=== PATIENT | female | born 1970 | race Caucasian/White ===

== ENCOUNTER 2016-10-19 11:50 | Emergency (ER) | payer MEDICARE, MEDICAID ==
[2016-10-19] MEDS ORDERED: METOCLOPRAMIDE HCL 10 MG/2 ML VIAL IM ONE ×2 (12:13→12:20)
[2016-10-19] MEDS ORDERED: DIPHENHYDRAMINE HCL IV 50 MG/ML VIAL IM ONE (12:13)
--- NOTE | 2016-10-19 12:41 | Emergency Department Record ---
History of Present Illness - General Chief Complaint: Headache Migraine Stated Complaint: warner Time Seen by Provider: 10/19/16 12:05 Source: Patient, RN notes reviewed Mode of Arrival: Ambulatory - History of Present Illness Initial Comments: Patient is having her typical migraine and has nausea and she has been seen here for migraines before. MD Complaint: "Migraine" Onset/Timin -: Days(s) Onset Description: Gradual Location: Diffuse, Frontal Severity: Mild Severity scale (1-10): 9 Quality: Aching Consistency: Constant Improves With: Nothing Worsens With: Light, Noise Treatments Prior to Arrival: Migraine medication - Related Data Home Medications Medication Instructions Recorded Confirmed Last Taken Citalopram Hydrobromide [Celexa] 20 mg PO DAILY 09/16/14 10/19/16 1 Day Ago Calcium Citrate 950 mg PO DAILY 12/16/14 10/19/16 1 Day Ago Cholecalciferol (Vitamin D3) 2,000 unit PO DAILY 12/16/14 10/19/16 1 Day Ago [Vitamin D3] Cyanocobalamin (Vitamin B-12) 500 mcg SL DAILY 12/16/14 10/19/16 1 Day Ago [B-12] Magnesium Oxide [Mag Ox] 400 mg PO DAILY 12/16/14 10/19/16 1 Day Ago Tramadol HCl [Ultram] 50 mg PO Q6H 07/25/15 10/19/16 1 Day Ago Oxymorphone HCl [Oxymorphone HCl 10 mg PO BID 10/19/16 10/19/16 2 Days Ago ER] Pantoprazole Sodium [Protonix] 20 mg PO DAILY 10/19/16 10/19/16 1 Day Ago Previous Rx's Medication Instructions Recorded Tramadol HCl 50 mg PO Q8H #10 tab 03/03/16 Allergies Allergy/AdvReac Type Severity Reaction Status Date / Time hydromorphone [HYDROMORPHONE] Allergy Unknown DIFFICULTY Verified 10/19/16 12:01 BREATHING morphine [MORPHINE] Allergy Unknown DIFFICULTY Verified 10/19/16 12:01 BREATHING Penicillins [PENICILLINS] Allergy Unknown RASH Verified 10/19/16 12:01 codeine [CODEINE] AdvReac Unknown NAUSEA AND Verified 10/19/16 12:01 VOMITING NSAIDS (Non-Steroidal AdvReac VOMITING Verified 10/19/16 12:01 Anti-Inflamma Travel Screening - Travel/Exposure Within Last 30 Days Have you traveled within the last 30 days?: No - Travel/Exposure Within Last Year Have you traveled outside the [place] in the last year?: No - Additonal Travel Details Have you been exposed to anyone with a communicable illness?: No - Travel Symptoms Symptom Screening: None Review of Systems Reviewed: No additional complaints except as noted below Constitutional: Reports: As per HPI. Denies: Chills, Fever, Malaise, Night sweats, Weakness, Weight change Eyes: Reports: As per HPI. Denies: Eye discharge, Eye pain, Photophobia, Vision change ENT: Reports: As per HPI. Denies: Congestion, Dental pain, Ear pain, Epistaxis , Hearing loss, Throat pain Respiratory: Reports: As per HPI. Denies: Cough, Dyspnea, Hemoptysis, Stridor, Wheezes Cardiovascular: Reports: As per HPI. Denies: Arrhythmia, Chest pain, Dyspnea on exertion, Edema, Murmurs, Orthopnea, Palpitations, Paroxysmal nocturnal dyspnea, Rheumatic Fever, Syncope Endocrine: Reports: As per HPI. Denies: Fatigue, Heat or cold intolerance, Polydipsia, Polyuria Gastrointestinal: Reports: As per HPI. Denies: Abdominal pain, Constipation, Diarrhea, Hematemesis, Hematochezia, Melena, Nausea, Vomiting Genitourinary: Reports: As per HPI. Denies: Abnormal menses, Discharge, Dyspareunia, Dysuria, Frequency, Hematuria, Incontinence, Retention, Urgency Musculoskeletal: Reports: As per HPI. Denies: Arthralgia, Back pain, Gout, Joint swelling, Myalgia, Neck pain Skin: Reports: As per HPI. Denies: Bruising, Change in color, Change in hair/ nails, Lesions, Pruritus, Rash Neurological: Reports: As per HPI, Headache. Denies: Abnormal gait, Confusion, Numbness, Paresthesias, Seizure, Tingling, Tremors, Vertigo, Weakness Psychiatric: Reports: As per HPI. Denies: Anxiety, Auditory hallucinations, Depression, Homicidal thoughts, Suicidal thoughts, Visual hallucinations Hematological/Lymphatic: Reports: As per HPI. Denies: Anemia, Blood Clots, Easy bleeding, Easy bruising, Swollen glands Past Medical History - SOCIAL HISTORY Smoking Status: Former smoker Alcohol Use: None Drug Use: None - RESPIRATORY Hx Respiratory Disorders: Yes Hx Asthma: Yes (controlled with inhalers) - CARDIOVASCULAR Hx Cardio Disorders: No Hx Hypertension: No (denies) Comment:: troubles with knee - NEURO Hx Neuro Disorders: Yes Hx Headaches: Yes Hx of Migraines: Yes (2-3x per week) Comment:: oxycontin for relief - GI Hx GI Disorders: Yes Hx Reflux: Yes (controlled with meds) Hx Wt Loss/Wt Gain: Yes (appeitite decreased) Comment:: gastric bypass 2009 with 125# wt loss - Hx Genitourinary Disorders: Yes Hx Kidney Stones: Yes - ENDOCRINE Hx Endocrine Disorders: No Hx Diabetes: Yes (gestational diabetes) - MUSCULOSKELETAL Hx Musculoskeletal Disorders: Yes Hx Arthritis: Yes Hx Osteoporosis: Yes - PSYCH Hx Psych Problems: Yes Hx Depression: Yes - HEMATOLOGY/ONCOLOGY Hx Hematology/Oncology Disorders: No Family Medical History Any Significant Family History?: Yes Hx Diabetes: Father, Mother Hx Heart Disease: Father, Mother Hx HTN: Father Hx Kidney Disease: Father, Mother Hx Resp Disorders: Father, Mother Physical Exam - General General Appearance: Alert, Oriented x3, Cooperative, No acute distress - Head Head exam: Normal inspection - Eye Eye exam: Normal appearance, PERRL Pupils: Normal accommodation - ENT ENT exam: Normal exam, Mucous membranes moist, Normal external ear exam, Normal orophraynx, TM's normal bilaterally Ear exam: Normal external inspection. negative: External canal tenderness Nasal Exam: Normal inspection. negative: Discharge, Sinus tenderness Mouth exam: Normal external inspection, Tongue normal Teeth exam: Normal inspection. negative: Dental caries Throat exam: Normal inspection. negative: Tonsillar erythema, Tonsillar exudate - Neck Neck exam: Normal inspection, Full ROM. negative: Tenderness - Respiratory Respiratory exam: Normal lung sounds bilaterally. negative: Respiratory distress - Cardiovascular Cardiovascular Exam: Regular rate, Normal rhythm, Normal heart sounds - GI/Abdominal GI/Abdominal exam: Soft, Normal bowel sounds. negative: Tenderness - Rectal Rectal exam: Deferred - exam: Deferred - Extremities Extremities exam: Normal inspection, Full ROM, Normal capillary refill. negative: Tenderness - Back Back exam: Reports: Normal inspection, Full ROM. Denies: Muscle spasm, Rash noted, Tenderness - Neurological Neurological exam: Alert, Normal gait, Oriented X3, Reflexes normal - Psychiatric Psychiatric exam: Normal affect, Normal mood - Skin Skin exam: Dry, Intact, Normal color, Warm Course Vital Signs 10/19/16 11:54 Temperature 97.9 F Pulse Rate 84 Respiratory 16 Rate Blood Pressure 143/92 Pulse Ox 97 - Reevaluation(s) Reevaluation #1: feeling better. 10/19/16 12:40 Disposition Clinical Impression: Migraine Qualifiers: Migraine type: with aura Status migrainosus presence: without status migrainosus Intractability: not intractable Qualified Code(s): G43.109 - Migraine with aura, not intractable, without status migrainosus Disposition: Home, Self-Care Condition: (1) Good Instructions: Migraine Headache (ED) Additional Instructions: follow up with alix Medrano in 3 days Forms: Patient Portal Access Time of Disposition: 12:42
== END 2016-10-19 12:53 | disposition home or self-care (01) ==
LOC: ER 11:50
DX: G43.109 Migraine with aura, not intractable, without status migrainosus (principal)
CPT/HCPCS: 96372; 99283; J1200; J2765

== ENCOUNTER 2016-12-28 14:48 | Emergency (ER) | payer MEDICAID, MEDICARE ==
[2016-12-28] MEDS ORDERED: PROMETHAZINE HCL 25 MG/ML VIAL IM ONE (16:34)
[2016-12-28] MEDS ORDERED: METHYLPREDNISOLONE PF 125MG/VIAL IM ONE (16:34)
[2016-12-28] MEDS ORDERED: ORPHENADRINE CITRATE 60MG/2ML VIAL IM ONE (16:34)
[2016-12-28] MEDS ORDERED: NALBUPHINE HCL 20 MG/ML AMPULE IM ONE (17:40)
--- NOTE | 2016-12-28 18:27 | Emergency Department Record ---
History of Present Illness - General Chief Complaint: Headache Migraine Stated Complaint: JUNIOR Time Seen by Provider: 12/28/16 16:25 Source: Patient Mode of Arrival: Ambulatory Limitations: No limitations - History of Present Illness MD Complaint: "Migraine" Onset/Timin -: Hour(s) Onset Description: Gradual Location: Diffuse Severity: Severe Severity scale (1-10): 10 Quality: Throbbing, Similar to previous headaches Consistency: Constant Improves With: Nothing Worsens With: Light, Noise Context: Occured at rest Associated Symptoms: Nausea, Photophobia, Sensitivity to sound Treatments Prior to Arrival: Migraine medication - Related Data Home Medications Medication Instructions Recorded Confirmed Last Taken Citalopram Hydrobromide [Celexa] 20 mg PO DAILY 09/16/14 12/28/16 12/28/16 Calcium Citrate 950 mg PO DAILY 12/16/14 12/28/16 12/28/16 Cholecalciferol (Vitamin D3) 2,000 unit PO DAILY 12/16/14 12/28/16 12/28/16 [Vitamin D3] Cyanocobalamin (Vitamin B-12) 500 mcg SL DAILY 12/16/14 12/28/16 12/28/16 [B-12] Magnesium Oxide [Mag Ox] 400 mg PO DAILY 12/16/14 12/28/16 12/28/16 Tramadol HCl [Ultram] 50 mg PO Q6H 07/25/15 12/28/16 12/28/16 Oxymorphone HCl [Oxymorphone HCl 10 mg PO BID 10/19/16 10/19/16 12/28/16 ER] Pantoprazole Sodium [Protonix] 20 mg PO DAILY 10/19/16 12/28/16 12/28/16 Allergies Allergy/AdvReac Type Severity Reaction Status Date / Time hydromorphone [HYDROMORPHONE] Allergy Unknown DIFFICULTY Verified 12/28/16 16:22 BREATHING morphine [MORPHINE] Allergy Unknown DIFFICULTY Verified 12/28/16 16:22 BREATHING Penicillins [PENICILLINS] Allergy Unknown RASH Verified 12/28/16 16:22 codeine [CODEINE] AdvReac Unknown NAUSEA AND Verified 12/28/16 16:22 VOMITING NSAIDS (Non-Steroidal AdvReac VOMITING Verified 12/28/16 16:22 Anti-Inflamma Travel Screening - Travel/Exposure Within Last 30 Days Have you traveled within the last 30 days?: No - Travel/Exposure Within Last Year Have you traveled outside the [place] in the last year?: No - Additonal Travel Details Have you been exposed to anyone with a communicable illness?: No - Travel Symptoms Symptom Screening: None Review of Systems Reviewed: No additional complaints except as noted below Constitutional: Reports: As per HPI. Denies: Chills, Fever, Malaise, Night sweats, Weakness, Weight change Eyes: Reports: As per HPI. Denies: Eye discharge, Eye pain, Photophobia, Vision change ENT: Reports: As per HPI. Denies: Congestion, Dental pain, Ear pain, Epistaxis , Hearing loss, Throat pain Respiratory: Reports: As per HPI. Denies: Cough, Dyspnea, Hemoptysis, Stridor, Wheezes Cardiovascular: Reports: As per HPI. Denies: Arrhythmia, Chest pain, Dyspnea on exertion, Edema, Murmurs, Orthopnea, Palpitations, Paroxysmal nocturnal dyspnea, Rheumatic Fever, Syncope Endocrine: Reports: As per HPI. Denies: Fatigue, Heat or cold intolerance, Polydipsia, Polyuria Gastrointestinal: Reports: As per HPI. Denies: Abdominal pain, Constipation, Diarrhea, Hematemesis, Hematochezia, Melena, Nausea, Vomiting Genitourinary: Reports: As per HPI. Denies: Abnormal menses, Discharge, Dyspareunia, Dysuria, Frequency, Hematuria, Incontinence, Retention, Urgency Musculoskeletal: Reports: As per HPI. Denies: Arthralgia, Back pain, Gout, Joint swelling, Myalgia, Neck pain Skin: Reports: As per HPI. Denies: Bruising, Change in color, Change in hair/ nails, Lesions, Pruritus, Rash Neurological: Reports: As per HPI. Denies: Abnormal gait, Confusion, Headache, Numbness, Paresthesias, Seizure, Tingling, Tremors, Vertigo, Weakness Psychiatric: Reports: As per HPI. Denies: Anxiety, Auditory hallucinations, Depression, Homicidal thoughts, Suicidal thoughts, Visual hallucinations Hematological/Lymphatic: Reports: As per HPI. Denies: Anemia, Blood Clots, Easy bleeding, Easy bruising, Swollen glands Past Medical History - SOCIAL HISTORY Smoking Status: Former smoker Alcohol Use: None Drug Use: None - RESPIRATORY Hx Respiratory Disorders: Yes Hx Asthma: Yes (controlled with inhalers) - CARDIOVASCULAR Hx Cardio Disorders: No Hx Hypertension: No (denies) Comment:: troubles with knee - NEURO Hx Neuro Disorders: Yes Hx Headaches: Yes Hx of Migraines: Yes (2-3x per week) Comment:: oxycontin for relief - GI Hx GI Disorders: Yes Hx Reflux: Yes (controlled with meds) Hx Wt Loss/Wt Gain: Yes (appeitite decreased) Comment:: gastric bypass 2009 with 125# wt loss - Hx Genitourinary Disorders: Yes Hx Kidney Stones: Yes - ENDOCRINE Hx Endocrine Disorders: No Hx Diabetes: Yes (gestational diabetes) - MUSCULOSKELETAL Hx Musculoskeletal Disorders: Yes Hx Arthritis: Yes Hx Osteoporosis: Yes - PSYCH Hx Psych Problems: Yes Hx Depression: Yes - HEMATOLOGY/ONCOLOGY Hx Hematology/Oncology Disorders: No Family Medical History Any Significant Family History?: Yes Hx Diabetes: Father, Mother Hx Heart Disease: Father, Mother Hx HTN: Father Hx Kidney Disease: Father, Mother Hx Resp Disorders: Father, Mother Physical Exam - General General Appearance: Alert, Oriented x3, Cooperative, Mild distress - Head Head exam: Normal inspection - Eye Eye exam: Normal appearance, PERRL, EOMI Pupils: Normal accommodation - ENT ENT exam: Normal exam, Mucous membranes moist, Normal external ear exam, Normal orophraynx, TM's normal bilaterally Ear exam: Normal external inspection. negative: External canal tenderness Nasal Exam: Normal inspection. negative: Discharge, Sinus tenderness Mouth exam: Normal external inspection, Tongue normal Teeth exam: Normal inspection. negative: Dental caries Throat exam: Normal inspection. negative: Tonsillar erythema, Tonsillar exudate - Neck Neck exam: Normal inspection, Full ROM. negative: Tenderness - Respiratory Respiratory exam: Normal lung sounds bilaterally. negative: Respiratory distress - Cardiovascular Cardiovascular Exam: Regular rate, Normal rhythm, Normal heart sounds - GI/Abdominal GI/Abdominal exam: Soft, Normal bowel sounds. negative: Tenderness - Rectal Rectal exam: Deferred - exam: Deferred - Extremities Extremities exam: Normal inspection, Full ROM, Normal capillary refill. negative: Tenderness - Back Back exam: Reports: Normal inspection, Full ROM. Denies: Muscle spasm, Rash noted, Tenderness - Neurological Neurological exam: Alert, CN II-XII intact, Normal gait, Oriented X3 - Psychiatric Psychiatric exam: Normal affect, Normal mood - Skin Skin exam: Dry, Intact, Normal color, Warm Course Vital Signs 12/28/16 16:10 Temperature 98.6 F Pulse Rate 86 Respiratory 16 Rate Blood Pressure 134/79 Pulse Ox 97 Disposition Disposition: Discharge Clinical Impression: Migraine Qualifiers: Migraine type: unspecified Status migrainosus presence: without status migrainosus Intractability: not intractable Qualified Code(s): G43.909 - Migraine, unspecified, not intractable, without status migrainosus Disposition: Home, Self-Care Condition: (1) Good Instructions: Migraine Headache (ED) Additional Instructions: follow up with neurologist. return sooner if worse Forms: Patient Portal Access
== END 2016-12-28 18:58 | disposition home or self-care (01) ==
LOC: ER 14:48
DX: G43.909 Migraine, unspecified, not intractable, without status migrainosus (principal); R11.0 Nausea; H53.149 Visual discomfort, unspecified
CPT/HCPCS: 99283 ×2; 96372; J2300; J2360; J2550; J2930

== ENCOUNTER 2017-01-15 13:06 | Emergency (ER) | payer MEDICARE | END 2017-01-15 13:12 | disposition left against medical advice (07) | LOC: ER 13:06 | DX: Z53.20 Procedure and treatment not carried out because of patient's decision for unspecified reasons (principal) ==

== ENCOUNTER 2017-07-31 07:47 | Day surgery (SDC) | payer MEDICARE, MEDICAID ==
--- NOTE | 2017-07-31 06:54 | History and Physical - [facility] ---
CHIEF COMPLAINT/HISTORY OF CHIEF COMPLAINT: This patient with a history of an intractable radiculitis has a spinal cord stimulator in place since 11/28/15. Although this appeared to be working quite well for the patient over the last number of months the system has stopped covering her pain and she has stopped using the system. Due to the failure of the therapy she is here by her request for removal of the system. PAST MEDICAL HISTORY: Asthmatic bronchitis. PAST SURGICAL HISTORY: Knee surgery, tonsils, ankle surgery, and gallbladder surgery. MEDICATIONS ON ADMISSION: List to be provided. ALLERGIES: VICODIN. FAMILY/PSYCHOSOCIAL HISTORY: Social history - Positive for caffeine. Family history - Positive for asthma, diabetes, coronary artery disease, and hypertension. SYSTEMS REVIEW: The patient seems appropriate in no acute distress. The remainder of the systems review is positive for glasses, breathing difficulties , degenerative arthritis, peripheral edema, depression, and difficulty sleeping. PHYSICAL EXAMINATION: Height and weight are not known. Vital signs are not available. HEENT: Within normal limits. LUNGS: Clear. HEART: Regular rate and rhythm. ABDOMEN: Nontender. MUSCULOSKELETAL: Examination of the musculoskeletal system shows the incisional sites of the leads approximating T12. Generator site is noted at the left posterior gluteal margin. All of the incisions are intact. Chronic pain pattern low back with a bilateral lower extremity extension. No obvious motor and sensory field abnormalities. NEUROLOGIC: Cranial nerves are intact. IMPRESSION: 1. LUMBAR RADICULITIS, ICD-10 CODE M54.16. 2. SPINAL CORD STIMULATOR INTERNAL GENERATOR, NONFUNCTIONAL. PLAN: The patient is here for removal of the stimulator, two leads and one generator. The procedure will be considered outpatient, an overnight stay should not be necessary. The potential risks, side effects, and complications have been reviewed and discussed. The patient understands and has consented. JOB NUMBER: [id number] MTDD
[~2017-07-31 07:47] MED LIST: ACETAMINOPHEN 1,000 MG/100 ML BTL IV ONE; CLINDAMYCIN 600MG/50ML PREMIX 600 MG/50 ML BAG IVPB ONE; FAMOTIDINE 20MG TABLET PO ONE; MECLIZINE 25 MG TABLET PO ONE; METOCLOPRAMIDE 10 MG TABLET PO ONE
[2017-07-31] MEDS ORDERED: LIDOCAINE 2% MDV (20MG/ML) 20ML VIAL IV ONE (07:48)
[2017-07-31] MEDS ORDERED: LIDOCAINE 1% W/EPI 1:200,000 MPF 30ML SQ ONE (07:48)
[2017-07-31] MEDS ORDERED: BUPIVACAINE 0.75% W/EPI MPF 30ML VIAL IVP ONE (07:48)
[2017-07-31] MEDS ORDERED: MORPHINE SULFATE 5 MG/ML PFS IVP ONE ×2 (07:48)
[2017-07-31] MEDS ORDERED: FAMOTIDINE 20MG TABLET PO ONE (07:48)
[2017-07-31] MEDS ORDERED: MIDAZOLAM HCL 2MG/2ML VIAL IV ONE (07:48)
[2017-07-31] MEDS ORDERED: FENTANYL PF 100MCG/2ML VIAL IV ONE (07:48)
[2017-07-31] MEDS ORDERED: CLINDAMYCIN (PEDIATRIC DOSING) 150 MG/ML VIAL IVPB ONE (07:48)
[2017-07-31] MEDS ORDERED: HYDROCODONE/APAP 7.5/325MG TABLET PO ONE (07:48)
[2017-07-31] MEDS ORDERED: PROPOFOL 10 MG/ML VIAL IV ONE (07:48)
--- NOTE | 2017-08-01 06:08 | Operative Note - [facility] ---
DATE OF SURGERY: 07/31/17 PREOPERATIVE DIAGNOSES: 1. INTRACTABLE LUMBAR RADICULITIS, ICD-10 CODE = M54.16 AND M54.17. 2. SPINAL CORD STIMULATOR, INTERNAL GENERATOR, TWO LEADS. OPERATION: 1. INCISION, SUBCUTANEOUS DISSECTION, AND REMOVAL OF TWO INDWELLING SPINAL CORD STIMULATORS. 2. INCISION, SUBCUTANEOUS DISSECTION, AND REMOVAL OF INTERNAL PULSE GENERATOR. SURGEON: ISABEL JACOBS D.O. ANESTHESIA: LOCAL SEDATION. ANESTHESIA PROVIDER: ROBB BAKER CRNA. INDICATION: This patient presents with a history of intractable lumbar radiculitis managed by spinal cord stimulator with two leads and internal generator. Over the last six to seven months, the system began to malfunction and lost the ability to control pain. Attempts at reprogramming were unsuccessful. She was given the option to remove or replace, she opted to remove. PROCEDURE: Intravenous line, vital sign monitoring, IV sedation, prepped and draped sterile technique. Under imaging, the incisional site at the midline approximating 12-1 for the two spinal cord stimulators, infiltrated with local, incision made, and subcutaneous dissection was conducted to the anchors. The anchors and sutures were removed intact. The leads were removed intact. All electrodes accounted for. At the left posterior gluteal margin generator site, skin infiltrated, incision made, and subcutaneous dissection was conducted to the pouch. The pouch was opened, the generator removed, and its connections to the leads removed intact. Antibiotic irrigation and Bovie for hemostasis. The incisions were then closed Vicryl for fascia and running subcuticular Vicryl for skin. A Dermabond used approximate the wounds. She was transported to the Recovery Room stable showing no side-effects from the procedure or the sedation. She was monitored until stable then discharged. DISCHARGE INSTRUCTIONS: 1. Sites will remain clean and dry. No showering or bathing in any way that would disrupt dressings; if it happens, contact the clinic. 2. Standard medications resumed including Levaquin, the antibiotic, 500 mg once a day for 14 days. 3. The office will contact the patient at home to set up an evaluation in 7-10 days to evaluate the sites. Until that period of time, activities should stay low. Limit bend, lift, push, pull. All other instructions provided, numbers to contact, problems given. The antibiotic has been called. cc: Dr. Werner JOB NUMBER: [id number] [facility]
== END 2017-07-31 10:45 | disposition home or self-care (01) ==
LOC: SUR 07:47
PROVIDERS: ATTEND Pain Medicine Interventional Pain Medicine
DX: T85.193A Other mechanical complication of implanted electronic neurostimulator, generator, initial encounter (principal); T85.192A Other mechanical complication of implanted electronic neurostimulator of spinal cord electrode (lead), initial encounter; M54.16 Radiculopathy, lumbar region; M54.17 Radiculopathy, lumbosacral region; Z98.84 Bariatric surgery status; E66.9 Obesity, unspecified; Z68.41 Body mass index [BMI] 40.0-44.9, adult; J45.909 Unspecified asthma, uncomplicated
CPT/HCPCS: 63661; 63688; 00300; J3010; J2270; J3490

== ENCOUNTER 2017-08-26 07:38 | Day surgery (SDC) | payer MEDICARE ==
--- NOTE | 2017-08-26 05:34 | History and Physical Report ---
DATE: 08/25/2017. CHIEF COMPLAINT AND HISTORY OF CHIEF COMPLAINT: This is a patient with a history of intractable pain which is in the low back and legs. She is here for an implanted spinal catheter infusion trial because of allergies to hydromorphone with morphine. A recent removal of spinal cord stimulation has left this patient without any appreciable method of pain control. PAST MEDICAL HISTORY: Asthmatic bronchitis, intractable radiculitis. PAST SURGICAL HISTORY: Knee surgery, ankle surgery, gallbladder surgery. MEDICATIONS ON ADMISSION: To be provided. ALLERGIES: Vicodin. SOCIAL HISTORY: Caffeine. FAMILY HISTORY: Asthma, diabetes, coronary artery disease, hypertension. REVIEW OF SYSTEMS: The patient seems appropriate and in no acute distress. The remainder of the systems review shows glasses, difficulty breathing, degenerative arthritis, peripheral edema, depression, and difficulty sleeping. PHYSICAL EXAMINATION: General: Height and weight are not available. Vital Signs: Unavailable. HEENT: Within normal limits. Lungs: Clear. Heart: Regular rate and rhythm. Abdomen: Nontender. Musculoskeletal: Examination of the musculoskeletal system shows a diffuse pain pattern throughout the low back extending into both legs. Motor and sensory field functionality is somewhat difficult to fully assess. There is a pain pattern which appears to be following both an L4 and an L5 pattern into both legs. Ambulation: No assistive device utilized. Neurologic: Cranial nerves are intact. IMPRESSION: LUMBAR RADICULITIS, ICD-10 CODE M54.16 AND M54.17. PLAN: The patient is here for an implanted spinal catheter infusion trial with morphine because of allergies to determine if the implantation of a permanent system can be of any value in pain control. An epidural blood patch will be performed as a secondary measure to help prevent spinal headache. The potential risks, side effects, and complications have been reviewed and discussed including spinal cord injury, nerve root injury, and spinal headache. A discussion with the [employer] construction sales representative was also reviewed, and all of the potential risks, side effects, and complications, as well as a review of the provided information through the company is documented. The complete details of the procedure have been provided. We will consider the procedure outpatient, although an overnight stay will be evaluated. JOB NUMBER: [id number] cc: Zofia Burdick
[~2017-08-26 07:38] MED LIST changes: +HYDROMORPHONE HCL IV ONE; +HYDROMORPHONE HCL/PF 0.002 MG in 0.9 % SODIUM CHLORIDE 10ML VIA 0.998 ML IV ONE; +MORPHINE SULFATE/PF 0.05 MG in 0.9 % SODIUM CHLORIDE 10ML VIA 0.95 ML IV ONE; +MORPHINE SULFATE/PF 0.05 MG in 0.9 % SODIUM CHLORIDE 10ML VIA 0.95 ML IV SCH; +MORPHINE SULFATE/PF 10.4 MG in 0.9 % SODIUM CHLORIDE 500ML 489.6 ML IV ONE; +MORPHINE SULFATE/PF 10.4 MG in 0.9 % SODIUM CHLORIDE 500ML 489.6 ML IV SCH; +SODIUM CHLORIDE 0.9% IV ONE
[2017-08-26] MEDS ORDERED: MORPHINE SULFATE 5 MG/ML PFS IVP ONE ×2 (07:39)
[2017-08-26] MEDS ORDERED: LIDOCAINE 2% MDV (20MG/ML) 20ML VIAL IV ONE (07:39)
[2017-08-26] MEDS ORDERED: ONDANSETRON HCL IV 4 MG/2 ML VIAL IVP ONE (07:39)
[2017-08-26] MEDS ORDERED: LIDOCAINE 1% W/EPI 1:200,000 MPF 30ML SQ ONE (07:39)
[2017-08-26] MEDS ORDERED: BUPIVACAINE 0.75% W/EPI MPF 30ML VIAL IVP ONE (07:39)
[2017-08-26] MEDS ORDERED: ACETAMINOPHEN 1,000 MG/100 ML BTL IV ONE (07:39)
[2017-08-26] MEDS ORDERED: MIDAZOLAM HCL 2MG/2ML VIAL IV ONE (07:39)
[2017-08-26] MEDS ORDERED: PROPOFOL 10 MG/ML VIAL IV ONE (07:39)
[2017-08-26] MEDS ORDERED: FENTANYL PF 100MCG/2ML VIAL IV ONE (07:39)
[2017-08-26] MEDS ORDERED: CLINDAMYCIN (PEDIATRIC DOSING) 150 MG/ML VIAL IVPB ONE (07:39)
[2017-08-26] MEDS ORDERED: AL HYDROX/MAG HYDROX 30ML UD PO PRN (12:35)
[2017-08-26] MEDS ORDERED: ACETAMINOPHEN 325 MG TAB PO PRN ×2 (12:35)
[2017-08-26] MEDS ORDERED: NALOXONE 0.4 MG/1 ML VIAL IVP PRN (12:35)
[2017-08-26] MEDS ORDERED: HYDROMORPHONE HCL 1 MG/ML SYRINGE IM PRN (12:35)
[2017-08-26] MEDS ORDERED: METOCLOPRAMIDE 10 MG TABLET PO PRN (12:35)
[2017-08-26] MEDS ORDERED: TEMAZEPAM 15 MG CAPSULE PO PRN ×2 (12:35)
[2017-08-26] MEDS ORDERED: METOCLOPRAMIDE HCL 10 MG/2 ML VIAL IVP PRN (12:35)
[2017-08-26] MEDS ORDERED: HYDROMORPHONE HCL 2 MG/ML VIAL IM PRN (12:35)
[2017-08-26] MEDS ORDERED: DIPHENHYDRAMINE HCL IV 50 MG/ML VIAL IVP PRN ×2 (12:35)
[2017-08-26] MEDS ORDERED: OXYCODONE/APAP 10MG-325MG TABLET PO PRN ×2 (12:35)
[2017-08-26] MEDS ORDERED: SENNOSIDES/DOCUSATE SODIUM UD CAPSULE PO PRN ×2 (12:35)
[2017-08-26] MEDS ORDERED: DIPHENHYDRAMINE HCL 25 MG CAPSULE PO PRN ×2 (12:35)
[2017-08-26] MEDS ORDERED: BREO (FLUTICASONE/VILANTEROL) 100MCG/25MCG INHALER INH PRN (12:39)
[2017-08-26] MEDS ORDERED: ALBUTEROL HFA 8 GM INHALER INH PRN (12:39)
[2017-08-26] MEDS: HYDROCODONE/APAP 7.5/325MG TABLET PO PRN ×3 (15:09→21:09)
[2017-08-26] MEDS: CITALOPRAM 20 MG TABLET PO SCH (15:11)
[2017-08-26] MEDS: CLINDAMYCIN 600MG/50ML PREMIX 600 MG/50 ML BAG IVPB SCH (18:05)
--- NOTE | 2017-08-26 19:51 | Operative Note - Ferro ---
DATE OF SURGERY: 08/26/17 PREOPERATIVE DIAGNOSIS: INTRACTABLE LUMBAR RADICULITIS, ICD-10 CODE = M54.16 AND M54.17. OPERATION: 1. FLUOROSCOPICALLY-GUIDED ACCESS SPINAL SPACE AT L3-4, PLACEMENT OF THIN- WALLED SPINAL CATHETER T12. 2. DIAGNOSTIC MYELOGRAPHY WITH RADIOLOGIC SUPERVISION AND INTERPRETATION. 3. SPINAL OPIOID BOLUS MORPHINE, 0.05 MG. 4. INCISION, SUBCUTANEOUS DISSECTION, AND ANCHORING OF SPINAL CATHETER TO SUPRASPINOUS FASCIA WITH AN ANCHORING DEVICE AND NONABSORBABLE SUTURE. 5. INCISION, SUBCUTANEOUS DISSECTION, AND CREATION OF A SUBCUTANEOUS POUCH AT LEFT POSTERIOR GLUTEAL MARGIN. 6. TUNNELING BETWEEN POUCHES, PLACEMENT OF EXTERNAL PORTION OF SPINAL CATHETER INTO POSTERIOR LEFT POUCH. CATHETER REVISED INTERFACED WITH SECOND CATHETER COMPONENT BY WAY OF CONNECTOR. 7. TUNNELING SECOND CATHETER COMPONENT SUPERIOR 6 CM EXITING SKIN. INTERFACE EXTERNAL CATHETER WITH INFUSION DEVICE SET TO DELIVER MORPHINE AT 0.2 MG PER DAY. 8. CLOSURE OF MIDLINE INCISION, VICRYL FOR FASCIA, AND RUNNING SUBCUTICULAR VICRYL FOR SKIN. CLOSURE OF LEFT POSTERIOR POUCH INCISION WITH A RUNNING NYLON. 9. NO EPIDURAL BLOOD PATCH COULD BE PERFORMED BECAUSE NO APPRECIABLE BLOOD FROM IV COULD BE OBTAINED. PATIENT TRANSPORTED TO THE RECOVERY ROOM FLAT, PILLOW UNDER HEAD AND KNEES. SURGEON: ISABEL JACOBS D.O. ANESTHESIA: LOCAL SEDATION. ANESTHESIA PROVIDER: FABY WHELAN CRNA. INDICATION: This patient presents with a history of intractable lumbar radiculitis. Due to the failure of all therapies, she is here for an implanted spinal catheter infusion trial with Morphine because of Hydromorphone sensitivities to determine if the implantation of a permanent system could be of any value in pain control. PROCEDURE: Intravenous line, vital sign monitoring, IV sedation, prepped and draped in sterile technique. Patient position prone. Sterile prep. Sterile technique. The spinal interspace at L3-4 was marked, infiltrated, and a 20 gauge spinal needle paramedian approach, beveled with a long axis into the spinal space. CSF flow was noted through the needle. A thin-walled spinal catheter was advanced positioned T12. CSF still noted through the spinal catheter. The catheter was clamped to stop CSF leak. Skin above and below the needle was infiltrated, incision made, and subcutaneous dissection was conducted to the supraspinous fascia. The needle was removed and the catheter was anchored to the supraspinous fascia with an anchoring device and nonabsorbable suture. With the catheter anchored, it was laid flat on the field and CSF was still noted coming from the catheter tip. Diagnostic myelography performed, the resulting flow characteristics were appropriate for the spinal space confirming myelogram characteristics. A bolus of Morphine 0.05 mg given into the spinal space. At the left posterior gluteal margin, site picked by the patient for the eventual pump, skin infiltrated, incision made, and subcutaneous dissection was conducted to form a pouch of suitable depth. A tunneling tool was used to carry the spinal catheter into the pump pouch and then the catheter was interfaced with a second catheter component by way of a catheter connection. This new catheter was then tunneled 6 cm above the incision at the pouch and exteriorized to the skin. The external catheter was then interfaced to an external pump, which was set to deliver Morphine at 0.2 mg per day. The midline incision was closed with Vicryl for fascia and running subcuticular Vicryl for skin. The left posterior pouch was closed with a running nylon. No blood patch could be performed because the patient was a difficult IV and no appreciable volume of blood could be aspirated through the peripheral IV. At that point, dressing was placed securing the catheter and all connections sterile dressing. She was transported to the Recovery Room flat, pillow under head and knees, and will be kept flat for four hours, slowly elevated for one. I am recommending to the patient and family that we keep the patient overnight for observation. We can manage fluid volume and keep her appropriately positioned. DISCHARGE INSTRUCTIONS: 1. The sites will remain clean and dry. No showering or bathing in any way that disrupts dressing. If it happens, contact the clinic. 2. Standard medications resumed, including Levaquin, the antibiotic, 500 mg once a day for 14 days. 3. Spinal opioid side-effects including respiratory depression, nausea, vomiting , constipation, urinary retention, lightheadedness, or rash have all been discussed and reviewed. She will be monitoring for spinal headache. With the occurrence of a headache, stay flat, caffeinated beverages and plenty of fluid, contact clinic. She will be scheduled for three increases; the first will be within the first 48 hours. The office will contact the patient at home to confirm the first increase. All other instructions provided, numbers to contact , problems given. She will be evaluated. cc: Dr. Rubin JOB NUMBER: [id number] MTDD
[2017-08-26] MEDS: PANTOPRAZOLE SODIUM 40 MG TABLET PO SCH (21:09)
[2017-08-26] MEDS: RINGERS SOLUTION,LACTATED 1,000 ML IV SCH ×2 (21:11→22:53)
[2017-08-27] MEDS: HYDROCODONE/APAP 7.5/325MG TABLET PO PRN ×4 (01:01→13:01)
[2017-08-27] MEDS: CLINDAMYCIN 600MG/50ML PREMIX 600 MG/50 ML BAG IVPB SCH ×2 (01:08→08:59)
[2017-08-27] MEDS: RINGERS SOLUTION,LACTATED 1,000 ML IV SCH (06:23)
[2017-08-27] MEDS: PANTOPRAZOLE SODIUM 40 MG TABLET PO SCH (06:26)
[2017-08-27] MEDS: CITALOPRAM 20 MG TABLET PO SCH (08:59)
--- NOTE | 2017-08-27 12:50 | RADIOLOGY REPORT ---
EXAM: LUMBAR SPINE HISTORY: STIMULATOR PLACEMENT. TECHNIQUE: A single AP view of the lumbar spine was performed. FINDINGS: Stimulator lead tip is at the L4 level. IMPRESSION: STIMULATOR LEAD TIP IS AT THE L4 LEVEL. JOB NUMBER: [id number] MTDD
== END 2017-08-27 13:07 | disposition home or self-care (01) ==
LOC: SUR 07:38 → MEDSURG 12:07 → SUR 08-27 13:07
PROVIDERS: ATTEND Pain Medicine Interventional Pain Medicine
DX: M54.16 Radiculopathy, lumbar region (principal); M54.17 Radiculopathy, lumbosacral region; J45.909 Unspecified asthma, uncomplicated; E66.9 Obesity, unspecified; Z68.41 Body mass index [BMI] 40.0-44.9, adult; J44.9 Chronic obstructive pulmonary disease, unspecified; Z98.84 Bariatric surgery status
CPT/HCPCS: 72020; J1170; J2405; J2765; J3490; J7040

== ENCOUNTER 2017-09-09 08:37 | Day surgery (SDC) | payer MEDICARE ==
--- NOTE | 2017-09-09 05:54 | History and Physical Report ---
DATE: 09/08/2017. CHIEF COMPLAINT AND HISTORY OF CHIEF COMPLAINT: This patient presents with a history of an intractable lumbar radiculitis. On 08/26/2017 an implanted spinal catheter infusion trial with hydromorphone was initiated. Her current spinal opioid infusion dose is 0.16 mg per day. She has 75 to 80 percent pain control and wants to move forward with a permanent implant. PAST MEDICAL HISTORY: Asthmatic bronchitis, radiculitis. PAST SURGICAL HISTORY: Knee surgery, ankle surgery, gallbladder surgery. MEDICATIONS ON ADMISSION: To be provided. ALLERGIES: Vicodin. SOCIAL HISTORY: Caffeine. FAMILY HISTORY: Asthma, diabetes, coronary artery disease, hypertension. REVIEW OF SYSTEMS: The patient is appropriate and in no acute distress. The remainder of the systems review shows glasses, difficulty with breathing, degenerative arthritis, peripheral edema, depression, difficulty sleeping. PHYSICAL EXAMINATION: General: Height and weight not known. Vital Signs: Blood pressure 140/80. Musculoskeletal: Current examination shows the dressings for the implanted catheter trial to be intact. The primary pain pattern is in the low back with a bilateral lower extremity component. Motor and sensory field function is essentially intact. There are no obvious deficits. Ambulation: No assistive device utilized. Neurologic: Cranial nerves are intact. IMPRESSION: 1. LUMBAR RADICULITIS, ICD-10 CODE M54.16 AND M54.17. 2. IMPLANTED SPINAL CATHETER INFUSION TRIAL WITH HYDROMORPHONE. PLAN: This patient had greater than 75 percent pain control with the implanted catheter trial and wants to move forward with a permanent implant. The external catheter will be removed and the pump will be implanted at the posterior gluteal margin as previously discussed. The potential risks, side effects, and complications have all been reviewed and discussed. The procedure will be considered outpatient, although an overnight stay will be evaluated. JOB NUMBER: [id number] cc: Zofia Burdick
[~2017-09-09 08:37] MED LIST changes: -HYDROMORPHONE HCL IV ONE; -HYDROMORPHONE HCL/PF 0.002 MG in 0.9 % SODIUM CHLORIDE 10ML VIA 0.998 ML IV ONE; +MORPHINE SULFATE 0.4 GM in 0.9 % SODIUM CHLORIDE 100ML 40 ML IV ONE; -MORPHINE SULFATE/PF 0.05 MG in 0.9 % SODIUM CHLORIDE 10ML VIA 0.95 ML IV SCH; -MORPHINE SULFATE/PF 10.4 MG in 0.9 % SODIUM CHLORIDE 500ML 489.6 ML IV ONE; -MORPHINE SULFATE/PF 10.4 MG in 0.9 % SODIUM CHLORIDE 500ML 489.6 ML IV SCH; -SODIUM CHLORIDE 0.9% IV ONE
[2017-09-09] MEDS ORDERED: CLINDAMYCIN (PEDIATRIC DOSING) 150 MG/ML VIAL IVPB ONE (08:38)
[2017-09-09] MEDS ORDERED: MORPHINE SULFATE 5 MG/ML PFS IVP ONE (08:38)
[2017-09-09] MEDS ORDERED: LIDOCAINE 2% MDV (20MG/ML) 20ML VIAL IV ONE (08:38)
[2017-09-09] MEDS ORDERED: PROPOFOL 10 MG/ML VIAL IV ONE (08:38)
[2017-09-09] MEDS ORDERED: MIDAZOLAM HCL 2MG/2ML VIAL IV ONE (08:38)
[2017-09-09] MEDS ORDERED: FENTANYL PF 100MCG/2ML VIAL IV ONE (08:38)
[2017-09-09] MEDS ORDERED: CITRIC ACID/SODIUM CITRATE 30 ML SOLUTION (BICITRA) PO ONE (08:38)
[2017-09-09] MEDS ORDERED: LIDOCAINE 1% W/EPI 1:200,000 MPF 30ML SQ ONE (08:38)
[2017-09-09] MEDS ORDERED: BUPIVACAINE 0.75% W/EPI MPF 30ML VIAL IVP ONE (08:38)
[2017-09-09] MEDS ORDERED: HYDROMORPHONE HCL 1 MG/ML SYRINGE IM PRN (14:26)
[2017-09-09] MEDS ORDERED: METOCLOPRAMIDE HCL 10 MG/2 ML VIAL IVP PRN (14:26)
[2017-09-09] MEDS ORDERED: DIPHENHYDRAMINE HCL IV 50 MG/ML VIAL IVP PRN ×2 (14:26)
[2017-09-09] MEDS ORDERED: ACETAMINOPHEN 325 MG TAB PO PRN ×2 (14:26)
[2017-09-09] MEDS ORDERED: DIPHENHYDRAMINE HCL 25 MG CAPSULE PO PRN ×2 (14:26)
[2017-09-09] MEDS ORDERED: OXYCODONE/APAP 10MG-325MG TABLET PO PRN ×2 (14:26)
[2017-09-09] MEDS ORDERED: SENNOSIDES/DOCUSATE SODIUM UD CAPSULE PO PRN ×2 (14:26)
[2017-09-09] MEDS ORDERED: HYDROMORPHONE HCL 2 MG/ML VIAL IM PRN (14:26)
[2017-09-09] MEDS ORDERED: METOCLOPRAMIDE 10 MG TABLET PO PRN (14:26)
[2017-09-09] MEDS ORDERED: TEMAZEPAM 15 MG CAPSULE PO PRN ×2 (14:26)
[2017-09-09] MEDS ORDERED: AL HYDROX/MAG HYDROX 30ML UD PO PRN (14:26)
[2017-09-09] MEDS ORDERED: ALBUTEROL HFA 8 GM INHALER INH PRN (14:29)
[2017-09-09] MEDS ORDERED: BREO (FLUTICASONE/VILANTEROL) 100MCG/25MCG INHALER INH PRN (14:30)
[2017-09-09] MEDS: RINGERS SOLUTION,LACTATED 1,000 ML IV SCH ×2 (14:39→23:29)
[2017-09-09] MEDS: HYDROCODONE/APAP 7.5/325MG TABLET PO PRN ×2 (16:38→22:11)
[2017-09-09] MEDS: CITALOPRAM 20 MG TABLET PO SCH (16:38)
[2017-09-09] MEDS: CLINDAMYCIN 600MG/50ML PREMIX 600 MG/50 ML BAG IVPB SCH (20:36)
[2017-09-09] MEDS: PANTOPRAZOLE SODIUM 40 MG TABLET PO SCH (22:06)
[2017-09-09] MEDS: MAGNESIUM OXIDE 400 MG TABLET PO SCH (22:06)
[2017-09-10] MEDS: CLINDAMYCIN 600MG/50ML PREMIX 600 MG/50 ML BAG IVPB SCH ×2 (04:36→11:49)
[2017-09-10] MEDS: PANTOPRAZOLE SODIUM 40 MG TABLET PO SCH (06:12)
[2017-09-10] MEDS: HYDROCODONE/APAP 7.5/325MG TABLET PO PRN ×2 (06:12→11:46)
--- NOTE | 2017-09-10 07:04 | Operative Note - Ferro ---
DATE OF SURGERY: 09/09/2017. PREOPERATIVE DIAGNOSIS: 1. LUMBAR RADICULITIS, ICD-10 CODE M54.16 AND M54.17. 2. INTRACTABLE LUMBAR RADICULITIS, ICD-10 CODE M54.16 AND M54.17. 3. IMPLANTED SPINAL CATHETER INFUSION TRIAL WITH HYDROMORPHONE. POSTOPERATIVE DIAGNOSIS: 1. LUMBAR RADICULITIS, ICD-10 CODE M54.16 AND M54.17. 2. INTRACTABLE LUMBAR RADICULITIS, ICD-10 CODE M54.16 AND M54.17. 3. IMPLANTED SPINAL CATHETER INFUSION TRIAL WITH HYDROMORPHONE. OPERATION: 1. INCISION, SUBCUTANEOUS DISSECTION, AND REMOVAL OF EXTERNAL CATHETER. 2. INCISION, SUBCUTANEOUS DISSECTION, AND CREATION OF SUBCUTANEOUS POUCH AT LEFT POSTEROSUPERIOR GLUTEAL MARGIN. REPLACEMENT OF PUMP IDENTIFIED A MEDTRONIC 40 ML PROGRAMMABLE. 3. REVISION OF THE INDWELLING SPINAL CATHETER INTERFACED WITH SECOND CATHETER COMPONENT BY WAY OF CONNECTOR. INTERFACE REVISED CATHETER TO NEW PUMP. 4. PUMP PREFILLED WITH MORPHINE 1.0 MG PER ML INTERFACED TO RESECTED CATHETER. PLACEMENT OF PUMP WITH CATHETER INTO POUCH SECURING TO POSTERIOR FASCIA WITH NONABSORBABLE SUTURE. 5. PLACEMENT OF CURVED 24-GAUGE FLOYD NEEDLE INTO ACCESS PORT. PROGRAMMABLE PUMP ASPIRATION WITH CLEARING OF SPINAL CATHETER OF OPIOID AND CEREBROSPINAL FLUID MIXTURE. 6. DIAGNOSTIC MYELOGRAPHY WITH RADIOLOGIC SUPERVISION AND INTERPRETATION. 7. PLACEMENT OF PUMP INTO POUCH AND CLOSURE OF INCISION WITH VICRYL FOR THE FASCIA AND RUNNING SUBCUTICULAR VICRYL FOR THE SKIN. 8. PROGRAMMING OF PUMP TO DELIVER BY CONTINUOUS INFUSION MORPHINE AT 1.0 MG PER DAY. SURGEON: Candelario Phillips D.O. ANESTHESIA: Local sedation. ANESTHESIA PROVIDER: Jan Rosa CRNA. INDICATION: This patient presents with a history of an intractable lumbar radiculitis. Due to the failure of therapy, an implanted spinal catheter infusion trial with morphine was conducted over 14 days. During this period of time, the patient had 75 to 85 percent pain control with no side effects and improved functionality and mobility. Due to the failure of all other therapies and the success of the implanted catheter trial, the patient presents today for implantation of a permanent system. DESCRIPTION OF PROCEDURE: Intravenous line, vital sign monitoring, and intravenous sedation. The patient was positioned prone. Sterile prep and sterile technique. All of the external dressings were removed. At the left posterior gluteal margin at the pump pouch site, the skin was infiltrated. An incision was made and subcutaneous dissection was conducted to the interface between the indwelling spinal catheter and the external catheter. The internal catheter was clamped. The external catheter was cut and was then removed intact. A second catheter component was then interfaced to the indwelling spinal catheter by way of a connector. The revised spinal catheter would be interfaced to the pump. A pouch was formed subcutaneously at the left posterior gluteal margin to accommodate a 40 mL programmable Medtronic pump. The new pump was placed onto the field filled with morphine at 1.0 mg per mL; 40 mL total. The revised catheter was then interfaced to the new pump. Antibiotic irrigation and Bovie for hemostasis. The pump was then placed into the pouch which had been formed and secured to the fascia with nonabsorbable suture at three points using pump eyelets. With the pump in the pouch, a 24- gauge Floyd needle was inserted into the access port, and 1.0 mL of catheter contents was aspirated, clearing the catheter of opioid and cerebrospinal mixture. Diagnostic myelography was then performed through the access port. The resulting flow characteristics showed the catheter intact within the pump. The pump catheter connection was intact with the catheter tip in the spinal space at L2 with smooth linear flow of contrast noted confirming functionality of the system. The incision was then closed with Vicryl for the fascia and running subcuticular Vicryl for the skin. Dermabond closure. The pump was programmed to deliver by continuous infusion morphine at 1.0 mg a day. She was transported to the recovery room with Dermabond in place to approximate the edges of the wound. By request, she will stay overnight for observation and will be discharged in the morning. DISCHARGE INSTRUCTIONS: 1. The sites are to remain clean and dry. No showering or bathing in any way tonight. She may shower tomorrow. 2. Standard medications are to be resumed including Levaquin the antibiotic 500 mg once a day for 14 days. 3. Opioid side effects including respiratory depression, nausea, vomiting, constipation, urinary retention, lightheadedness, and rash have all been discussed and reviewed. All of the other potential side effects have been reviewed. 4. She will be discharged in the morning. She will then be contacted by the office in 24 to 48 hours to set up an appointment in five to seven days to evaluate the sites. Until then, her activities should stay low. No bend, lift , push, or pull. 5. She should not sit in water, but she may shower in 24 hours. 6. All other instructions were provided. Numbers to contact with problems were given. She will be discharged in the morning. JOB NUMBER: [id number] cc: Zofia Burdick
[2017-09-10] MEDS: RINGERS SOLUTION,LACTATED 1,000 ML IV SCH (08:36)
--- NOTE | 2017-09-10 08:56 | RADIOLOGY REPORT ---
EXAM: AP LUMBAR SPINE HISTORY: POST PAIN PUMP IMPLANT. TECHNIQUE: A single AP view of the lumbar spine was obtained. Comparison: Prior AP spine view dated 08/26/17. FINDINGS: There is a battery pack partially seen along the left lower quadrant lateral aspect of the abdomen. Some faint wire extends from this to overlie the lumbar spine at the approximate L4 level. There is a very faint tiny dot like metallic density overlying the L2 vertebra which could be the superior extent of the associated catheter although correlation with the procedure itself is suggested as this is very faintly seen. A simile dot like density was seen at the level of the upper body of L1 on the prior study. Surgical clips right upper quadrant of the abdomen presumably from cholecystectomy. IMPRESSION: FAINT WIRE/CATHETER STRUCTURE OVERLYING THE LUMBAR SPINE QUESTIONABLY TERMINATING AT THE APPROXIMATE L2 LEVEL DESCRIBED ABOVE. JOB NUMBER: [id number] MTDD
[2017-09-10] MEDS: CITALOPRAM 20 MG TABLET PO SCH (10:01)
[2017-09-10] MEDS: MAGNESIUM OXIDE 400 MG TABLET PO SCH (10:02)
== END 2017-09-10 13:00 | disposition home or self-care (01) ==
LOC: SUR 08:37 → MEDSURG 14:35 → SUR 09-10 13:00
PROVIDERS: ATTEND Pain Medicine Interventional Pain Medicine
DX: M54.16 Radiculopathy, lumbar region (principal); M54.17 Radiculopathy, lumbosacral region
CPT/HCPCS: 62350; 62362; 00630; 62367; 72020; Q9967; J3010; J2270; J1170; J3490; C1755; J2765; J7120

== ENCOUNTER 2017-09-16 14:16 | Emergency (ER) | payer MEDICARE ==
[2017-09-16 15:03] LABS: URINE APPEARANCE CLEAR; URINE BILIRUBIN NEGATIVE (NEGATIVE); URINE BLOOD NEGATIVE (NEGATIVE); URINE COLOR YELLOW; URINE GLUCOSE (UA) NEGATIVE (NEGATIVE); URINE KETONE NEGATIVE (NEGATIVE); URINE LEUKOCYTE ESTERASE NEGATIVE (NEGATIVE); URINE NITRITE NEGATIVE (NEGATIVE); URINE PROTEIN NEGATIVE (NEGATIVE); URINE UROBILINOGEN 0.2 E.U./dL (0.20 - 1.00)
[2017-09-16] MEDS: ONDANSETRON HCL IV 4 MG/2 ML VIAL IVP ONE (15:12)
[2017-09-16 15:28] LABS: BASO % 0.5 % (0-6); EOS % 12.4 % (0-6); GRAN % 48.9 % (47-80); HEMATOCRIT 37.6 % (35.0-47.0); HEMOGLOBIN 11.4 gm/dl (11.6-16.0); LYMPH % 30.5 % (16-45); MEAN CELL VOLUME 101.9 fl (81-97); MEAN CORPUSCULAR HGB CONC 30.3 g/dl (32-36); MEAN PLATELET VOLUME 9.6 fl (7.4-10.4); MONO % 7.7 % (0-9); PLATELET COUNT 357 K/uL (130-400); RED BLOOD COUNT 3.69 M/uL (3.80-5.40); RED CELL DISTRIBUTION WIDTH 12.6 % (11.5-14.5); WHITE BLOOD COUNT W/O DIFF 5.6 K/uL (4.2-12.2)
[2017-09-16 15:29] LABS: MEAN CORPUSCULAR HEMOGLOBIN 30.8 pg (27-33)
[2017-09-16 15:38] LABS: BLOOD UREA NITROGEN 5 mg/dL (6-20); CREATININE 0.5 mg/dL (0.5-0.9); EST GLOMERULAR FILTRATION RATE > 60 mL/min; TOTAL PROTEIN 7.9 g/dL (6.6-8.7)
[2017-09-16 15:40] LABS: GLUCOSE,RANDOM 98 mg/dL (74-109)
[2017-09-16 15:43] LABS: ALKALINE PHOSPHATASE 103 U/L (35-104); ALT/SGPT 16 U/L (<33); AST/SGOT 22 U/L (10.0-35.0)
--- NOTE | 2017-09-16 15:48 | Emergency Department Record ---
History of Present Illness - General Chief Complaint: General Stated Complaint: SWOLLEN FEET/LEGS,HEADACHE,DIZINESS,NAUSEA Time Seen by Provider: 09/16/17 14:55 Source: Patient Mode of Arrival: Ambulatory Limitations: No limitations - History of Present Illness Initial comments: pt c/o swelling of feet and nausea pt had a morphine pump put in last week and since then she has has nausea and her feet have been swelling -: Days(s) Location: Left, Right, Other (feet) Quality: Aching Consistency: Constant Improves with: Rest Worsens with: Movement Associated Symptoms: Nausea/vomiting - [place] Coma Scale Eye Response: (4) Open spontaneously Motor Response: (6) Obeys commands Verbal Response: (5) Oriented [place] Total: 15 - Related Data Home Medications Medication Instructions Recorded Confirmed Last Taken Cephalexin [Keflex] 500 mg PO QID 09/16/17 09/16/17 09/16/17 Previous Rx's Medication Instructions Recorded Promethazine HCl [Phenergan] 12.5 mg PO BID #7 tablet 09/16/17 Allergies Allergy/AdvReac Type Severity Reaction Status Date / Time hydromorphone [HYDROMORPHONE] Allergy Unknown DIFFICULTY Verified 09/16/17 14:35 BREATHING Penicillins [PENICILLINS] Allergy Unknown RASH Verified 09/16/17 14:35 codeine [CODEINE] AdvReac Unknown NAUSEA AND Verified 09/16/17 14:35 VOMITING NSAIDS (Non-Steroidal AdvReac VOMITING Verified 09/16/17 14:35 Anti-Inflamma Travel Screening - Travel/Exposure Within Last 30 Days Have you traveled within the last 30 days?: No - Travel/Exposure Within Last Year Have you traveled outside the [place] in the last year?: No - Additonal Travel Details Have you been exposed to anyone with a communicable illness?: No - Travel Symptoms Symptom Screening: None Review of Systems Reviewed: No additional complaints except as noted below Constitutional: Reports: As per HPI. Denies: Chills, Fever, Malaise, Night sweats, Weakness, Weight change Eyes: Reports: As per HPI. Denies: Eye discharge, Eye pain, Photophobia, Vision change ENT: Reports: As per HPI. Denies: Congestion, Dental pain, Ear pain, Epistaxis , Hearing loss, Throat pain Respiratory: Reports: As per HPI. Denies: Cough, Dyspnea, Hemoptysis, Stridor, Wheezes Cardiovascular: Reports: As per HPI. Denies: Arrhythmia, Chest pain, Dyspnea on exertion, Edema, Murmurs, Orthopnea, Palpitations, Paroxysmal nocturnal dyspnea, Rheumatic Fever, Syncope Endocrine: Reports: As per HPI. Denies: Fatigue, Heat or cold intolerance, Polydipsia, Polyuria Gastrointestinal: Reports: As per HPI. Denies: Abdominal pain, Constipation, Diarrhea, Hematemesis, Hematochezia, Melena, Nausea, Vomiting Genitourinary: Reports: As per HPI. Denies: Abnormal menses, Discharge, Dyspareunia, Dysuria, Frequency, Hematuria, Incontinence, Retention, Urgency Musculoskeletal: Reports: As per HPI. Denies: Arthralgia, Back pain, Gout, Joint swelling, Myalgia, Neck pain Skin: Reports: As per HPI. Denies: Bruising, Change in color, Change in hair/ nails, Lesions, Pruritus, Rash Neurological: Reports: As per HPI. Denies: Abnormal gait, Confusion, Headache, Numbness, Paresthesias, Seizure, Tingling, Tremors, Vertigo, Weakness Psychiatric: Reports: As per HPI. Denies: Anxiety, Auditory hallucinations, Depression, Homicidal thoughts, Suicidal thoughts, Visual hallucinations Hematological/Lymphatic: Reports: As per HPI. Denies: Anemia, Blood Clots, Easy bleeding, Easy bruising, Swollen glands Past Medical History - SOCIAL HISTORY Smoking Status: Former smoker Alcohol Use: None Drug Use: None - RESPIRATORY Hx Respiratory Disorders: Yes Hx Asthma: Yes (controlled with inhalers) - CARDIOVASCULAR Hx Cardio Disorders: No Comment:: troubles with knee - NEURO Hx Neuro Disorders: Yes Hx Dizziness: Yes (once a month vertigo down for 3-5 days) Hx Headaches: Yes Hx of Migraines: Yes (2-3x per week) - GI Hx GI Disorders: Yes Hx Reflux: Yes (controlled with meds) Hx Wt Loss/Wt Gain: (denies) - Hx Genitourinary Disorders: Yes Hx Bladder Problem: Yes (small bladder frequent urination) Hx Kidney Stones: Yes Comment:: s/p hyst - ENDOCRINE Hx Endocrine Disorders: No Hx Diabetes: Yes (gestational diabetes) - MUSCULOSKELETAL Hx Musculoskeletal Disorders: Yes Hx Arthritis: Yes - PSYCH Hx Psych Problems: Yes Hx Depression: Yes - HEMATOLOGY/ONCOLOGY Hx Hematology/Oncology Disorders: No Family Medical History Any Significant Family History?: Yes Hx Diabetes: Father, Mother Hx Heart Disease: Father, Mother Hx HTN: Father Hx Kidney Disease: Father, Mother Hx Resp Disorders: Father, Mother Physical Exam - General General Appearance: Alert, Oriented x3, Cooperative, Mild distress - Head Head exam: Normal inspection - Eye Eye exam: Normal appearance, PERRL, EOMI Pupils: Normal accommodation - ENT ENT exam: Normal exam, Mucous membranes moist, Normal external ear exam, Normal orophraynx Ear exam: Normal external inspection. negative: External canal tenderness Nasal Exam: Normal inspection. negative: Discharge, Sinus tenderness Mouth exam: Normal external inspection, Tongue normal Teeth exam: Normal inspection. negative: Dental caries Throat exam: Normal inspection. negative: Tonsillar erythema, Tonsillar exudate - Neck Neck exam: Normal inspection, Full ROM. negative: Tenderness - Respiratory Respiratory exam: Normal lung sounds bilaterally. negative: Respiratory distress - Cardiovascular Cardiovascular Exam: Regular rate, Normal rhythm, Normal heart sounds - GI/Abdominal GI/Abdominal exam: Soft, Normal bowel sounds. negative: Tenderness - Rectal Rectal exam: Deferred - exam: Deferred - Extremities Extremities exam: Normal inspection, Full ROM, Normal capillary refill, Pedal edema (slight). negative: Tenderness - Back Back exam: Reports: Normal inspection, Full ROM, Other (healing incision on l hip). Denies: Muscle spasm, Rash noted, Tenderness - Neurological Neurological exam: Alert, CN II-XII intact, Normal gait, Oriented X3 - Psychiatric Psychiatric exam: Normal affect, Normal mood - Skin Skin exam: Dry, Intact, Normal color, Warm Course Vital Signs 09/16/17 14:44 Temperature 97.9 F Pulse Rate 93 H Blood Pressure 178/107 - Reevaluation(s) Reevaluation #1: 09/16/17 16:42 pts nausea could possibly be caused by the new morphine pump she has. she was told to follow up with dr can hurtado this Medical Decision Making - Lab Data Result diagrams: 09/16/17 15:20 09/16/17 15:20 Lab Results 09/16/17 09/16/17 Range/Units 15:20 15:20 WBC 5.6 (4.2-12.2) K/uL RBC 3.69 L (3.80-5.40) M/uL Hgb 11.4 L (11.6-16.0) gm/dl Hct 37.6 (35.0-47.0) % MCV 101.9 H (81-97) fl MCH 30.8 (27-33) pg MCHC 30.3 L (32-36) g/dl RDW 12.6 (11.5-14.5) % Plt Count 357 (130-400) K/uL MPV 9.6 (7.4-10.4) fl Gran % 48.9 (47-80) % Lymphocytes % 30.5 (16-45) % Monocytes % 7.7 (0-9) % Eosinophils % 12.4 H (0-6) % Basophils % 0.5 (0-6) % Sodium 138 (136-145) mmol/L Potassium 3.9 (3.4-4.5) mmol/L Chloride 98 (98-107) mmol/L Carbon Dioxide 29.0 (22-29) mmol/L Anion Gap 11.0 (7-16) BUN 5 L (6-20) mg/dL Creatinine 0.5 (0.5-0.9) mg/dL Estimated GFR > 60 mL/min Random Glucose 98 (74-109) mg/dL Calcium 9.2 (8.6-10.0) mg/dL Total Bilirubin 0.20 (0.2-1.0) mg/dL Total Protein 7.9 (6.6-8.7) g/dL Disposition Disposition: Discharge Clinical Impression: Nausea, Pedal edema Disposition: Home, Self-Care Condition: (1) Good Instructions: Leg Edema (ED), Acute Nausea and Vomiting (ED) Additional Instructions: follow up with dr north and with family doctor. return sooner if worse. elevate feet. Prescriptions: Promethazine HCl [Phenergan] 12.5 mg PO BID #7 tablet Forms: Patient Portal Access Quality - Quality Measures Quality Measures: N/A - Blood Pressure Screening Does Patient Have Any of the Following: No Blood Pressure Classification: Hypertensive Reading Systolic Measurement: 178 Diastolic Measurement: 107 Screening for High Blood Pressure: < First Hypertensive BP, F/U Documented > [ [id number]] First Hypertensive Follow-up Interventions: Follow-up with rescreen GT 1 day and LT 4 weeks.
[2017-09-16] MEDS: PROMETHAZINE HCL 6.25 MG in 0.9 % SODIUM CHLORIDE 100ML 100 ML IVPB ONE (16:50)
== END 2017-09-16 17:27 | disposition home or self-care (01) ==
LOC: ER 14:16
DX: R11.0 Nausea (principal); R60.0 Localized edema; R42 Dizziness and giddiness; R51 Headache
CPT/HCPCS: 99284 ×2; 96365; 96375; 85025; 80053; 81003; 83880; J2405; J2550

== ENCOUNTER 2017-09-21 07:49 | Emergency (ER) | payer MEDICARE ==
--- NOTE | 2017-09-21 07:57 | Emergency Department Record ---
History of Present Illness - General Chief Complaint: Back Pain/Injury Stated Complaint: BACK PAIN Time Seen by Provider: 09/21/17 07:56 Source: Patient Mode of Arrival: Ambulatory Limitations: No limitations - History of Present Illness Initial Comments: The patient is here due to a chronic back and neck pain issue. The patient has a long hx of chronic back and neck pain and did have a spinal Hydromorphone pump placed 12 days ago. Since the surgery she has had persistent nausea and now states her pain is back to her pre surgery level. She denies any CP, SOB, AP , vomiting, diarrhea, fever, or any arm or leg numbness or weakness. The patient does have an appointment with her Pain Specialist today at 3:30 pm. She also was in the ER 5 days ago for the same issues and was placed on Phenergan for nausea. MD Complaint: Back pain Onset/Timin -: Year(s) - Related Data Previous Rx's Medication Instructions Recorded Promethazine HCl [Phenergan] 12.5 mg PO BID #7 tablet 09/16/17 Allergies Allergy/AdvReac Type Severity Reaction Status Date / Time hydromorphone [HYDROMORPHONE] Allergy Unknown DIFFICULTY Verified 09/21/17 07:58 BREATHING Penicillins [PENICILLINS] Allergy Unknown RASH Verified 09/21/17 07:58 codeine [CODEINE] AdvReac Unknown NAUSEA AND Verified 09/21/17 07:58 VOMITING NSAIDS (Non-Steroidal AdvReac VOMITING Verified 09/21/17 07:58 Anti-Inflamma Review of Systems Constitutional: Reports: Malaise. Denies: Chills, Fever Eyes: Denies: Eye discharge ENT: Denies: Congestion Respiratory: Denies: Cough, Dyspnea Cardiovascular: Denies: Chest pain Past Medical History - SOCIAL HISTORY Smoking Status: Former smoker Drug Use: None - RESPIRATORY Hx Respiratory Disorders: Yes Hx Asthma: Yes (controlled with inhalers) - CARDIOVASCULAR Hx Cardio Disorders: No Comment:: troubles with knee - NEURO Hx Neuro Disorders: Yes Hx Dizziness: Yes (once a month vertigo down for 3-5 days) Hx Headaches: Yes Hx of Migraines: Yes (2-3x per week) - GI Hx GI Disorders: Yes Hx Reflux: Yes (controlled with meds) Hx Wt Loss/Wt Gain: (denies) - Hx Genitourinary Disorders: Yes Hx Bladder Problem: Yes (small bladder frequent urination) Hx Kidney Stones: Yes Comment:: s/p hyst - ENDOCRINE Hx Endocrine Disorders: No Hx Diabetes: Yes (gestational diabetes) - MUSCULOSKELETAL Hx Musculoskeletal Disorders: Yes Hx Arthritis: Yes - PSYCH Hx Psych Problems: Yes Hx Depression: Yes - HEMATOLOGY/ONCOLOGY Hx Hematology/Oncology Disorders: No Family Medical History Hx Diabetes: Father, Mother Hx Heart Disease: Father, Mother Hx HTN: Father Hx Kidney Disease: Father, Mother Hx Resp Disorders: Father, Mother Physical Exam - General General Appearance: Alert, Oriented x3, Cooperative, No acute distress - Head Head exam: Atraumatic, Normocephalic, Normal inspection - Eye Eye exam: Normal appearance, PERRL - Neck Neck exam: Normal inspection, Full ROM, Tenderness (There is mild diffuse tenderness to the posterior cervical muscle area.) - Respiratory Respiratory exam: Normal lung sounds bilaterally. negative: Respiratory distress - Cardiovascular Cardiovascular Exam: Regular rate, Normal rhythm, Normal heart sounds - GI/Abdominal GI/Abdominal exam: Soft, Normal bowel sounds. negative: Tenderness - Extremities Extremities exam: Normal inspection, Full ROM, Normal capillary refill. negative: Tenderness - Neurological Neurological exam: Alert, Normal gait, Oriented X3, Reflexes normal. negative: Abnormal gait, Motor sensory deficit - Psychiatric Psychiatric exam: negative: Anxious - Skin Skin exam: negative: Erythema, Rash Course - Reevaluation(s) Reevaluation #1: The patient is doing much better at this time. Her pain is much improved and she is ready for home. I did find out the pain pump presently is NOT on and this is clearly why her pain is worse. She also had her Tramadol stopped. She is encouraged to keep her appointment today with Dr. Phillips to have the pump turned on. 09/21/17 09:06 Disposition Disposition: Discharge Clinical Impression: Chronic pain disorder Disposition: Home, Self-Care Condition: (2) Stable Instructions: Chronic Pain (ED) Additional Instructions: Please continue your regular medicines and definitely keep your appointment today to turn the pain pump on. Return to the ER for any worsening problems. Forms: Patient Portal Access Time of Disposition: 09:05 Quality - Quality Measures Quality Measures: N/A - Blood Pressure Screening View Details: Yes Does Patient Have Any of the Following: No, Active Dx of HTN Blood Pressure Classification: Hypertensive Reading Systolic Measurement: 166 Diastolic Measurement: 115 Screening for High Blood Pressure: Patient Exclusion, Hx of HTN [J7803]
[2017-09-21] MEDS ORDERED: ONDANSETRON 4 MG ODT TABLET SL ONE (08:05)
[2017-09-21] MEDS ORDERED: KETOROLAC 30 MG/ML VIAL IM ONE (08:06)
[2017-09-21] MEDS ORDERED: TRAMADOL HCL 50 MG TABLET PO ONE (08:42)
== END 2017-09-21 09:13 | disposition home or self-care (01) ==
LOC: ER 07:49
DX: G89.29 Other chronic pain (principal); M54.2 Cervicalgia; R11.0 Nausea
CPT/HCPCS: 99283 ×2; 96372; J1885

== ENCOUNTER 2018-04-22 17:07 | Emergency (ER) | payer MEDICARE ==
[2018-04-22] MEDS ORDERED: TRAMADOL HCL 50 MG TABLET PO ONE (17:25)
--- NOTE | 2018-04-22 17:32 | Emergency Department Record ---
History of Present Illness - General Chief Complaint: Fall Injury Stated Complaint: FALL INJURY Time Seen by Provider: 04/22/18 17:10 Source: Patient Mode of Arrival: Ambulatory Limitations: No limitations - History of Present Illness Initial Comments: 47 yo female presents to ED for evaluation following a fall that occurred yesterday while attempting to change her litter box. Patient reports that she bent over and fell to the ground resulting in injury "al over". Patient specifically reports headache and right shoulder pain. Patient denies syncope, denies numbness, tingling, or extremity weakness symptoms. Patient denies the use of anticoagulation medications as well. Patient reports pain with elevation of the right shoulder. Patient also reports taking Tramadol for her pain symptoms at home that has helped. MD Complaint: Fall Onset/Timin -: Hour(s) Fall From: Standing When Fall Occurred: Other Fall Witnessed: Yes, by family Place Fall Occurred: Home Loss of Consciousness: Yes Prolonged Down Time?: Yes Symptoms Prior to Fall: Other Location: Head, Back Location - Extremities: Right: Shoulder Severity: Moderate Quality: Aching Associated Symptoms: Other - [place] Coma Scale Eye Response: (4) Open spontaneously Motor Response: (6) Obeys commands Verbal Response: (5) Oriented [place] Total: 15 - Related Data Previous Rx's Medication Instructions Recorded Promethazine HCl [Phenergan] 12.5 mg PO BID #7 tablet 09/16/17 Allergies Allergy/AdvReac Type Severity Reaction Status Date / Time hydromorphone [HYDROMORPHONE] Allergy Unknown DIFFICULTY Verified 09/21/17 07:58 BREATHING Penicillins [PENICILLINS] Allergy Unknown RASH Verified 09/21/17 07:58 codeine [CODEINE] AdvReac Unknown NAUSEA AND Verified 09/21/17 07:58 VOMITING NSAIDS (Non-Steroidal AdvReac VOMITING Verified 09/21/17 07:58 Anti-Inflamma Travel Screening - Travel/Exposure Within Last 30 Days Have you traveled within the last 30 days?: No - Travel/Exposure Within Last Year Have you traveled outside the [place] in the last year?: No - Additonal Travel Details Have you been exposed to anyone with a communicable illness?: No - Travel Symptoms Symptom Screening: None Review of Systems Constitutional: Denies: Chills, Fever, Malaise, Night sweats Eyes: Denies: Eye discharge, Eye pain ENT: Denies: Congestion, Ear pain, Epistaxis Respiratory: Denies: Cough, Dyspnea Cardiovascular: Denies: Chest pain, Dyspnea on exertion Endocrine: Denies: Fatigue, Heat or cold intolerance Gastrointestinal: Denies: Abdominal pain, Nausea, Vomiting Genitourinary: Denies: Incontinence, Retention Musculoskeletal: Reports: Arthralgia. Denies: Back pain, Gout, Joint swelling Skin: Denies: Bruising, Change in color Neurological: Reports: Headache. Denies: Abnormal gait, Confusion, Tingling, Tremors Psychiatric: Denies: Anxiety Hematological/Lymphatic: Denies: Anemia, Blood Clots Past Medical History - SOCIAL HISTORY Smoking Status: Former smoker Alcohol Use: None Drug Use: None - RESPIRATORY Hx Respiratory Disorders: Yes Hx Asthma: Yes (controlled with inhalers) - CARDIOVASCULAR Hx Cardio Disorders: No Comment:: troubles with knee - NEURO Hx Neuro Disorders: Yes Hx Dizziness: Yes (once a month vertigo down for 3-5 days) Hx Headaches: Yes Hx of Migraines: Yes (2-3x per week) - GI Hx GI Disorders: Yes Hx Reflux: Yes (controlled with meds) Hx Wt Loss/Wt Gain: (denies) - Hx Genitourinary Disorders: Yes Hx Bladder Problem: Yes (small bladder frequent urination) Hx Kidney Stones: Yes Comment:: s/p hyst - ENDOCRINE Hx Endocrine Disorders: No Hx Diabetes: Yes (gestational diabetes) Hx Thyroid Disease: No - MUSCULOSKELETAL Hx Musculoskeletal Disorders: Yes Hx Arthritis: Yes - PSYCH Hx Psych Problems: Yes Hx Depression: Yes - HEMATOLOGY/ONCOLOGY Hx Hematology/Oncology Disorders: No Family Medical History Any Significant Family History?: No Hx Diabetes: Father, Mother Hx Heart Disease: Father, Mother Hx HTN: Father Hx Kidney Disease: Father, Mother Hx Resp Disorders: Father, Mother Physical Exam - General General Appearance: Alert, Oriented x3, Cooperative, Mild distress, Anxious Limitations: No limitations - Head Head exam: Atraumatic, Normocephalic, Normal inspection Head exam detail: negative: Abrasion, Contusion, Vega's sign, General tenderness, Hematoma, Laceration - Eye Eye exam: Normal appearance. negative: Conjunctival injection, Periorbital swelling, Periorbital tenderness, Scleral icterus - ENT Ear exam: negative: Auricular hematoma, Auricular trauma Nasal Exam: negative: Active bleeding, Discharge, Dried blood, Sinus tenderness Mouth exam: negative: Drooling, Laceration, Tongue elevation - Neck Neck exam: Normal inspection. negative: Meningismus, Tenderness - Respiratory Respiratory exam: Normal lung sounds bilaterally. negative: Respiratory distress, Rhonchi, Stridor, Wheezes - Cardiovascular Cardiovascular Exam: Regular rate, Normal rhythm, Normal heart sounds - GI/Abdominal GI/Abdominal exam: Soft. negative: Distended, Rebound, Rigid, Tenderness - Rectal Rectal exam: Deferred - exam: Deferred - Extremities Extremities exam: Full ROM, Tenderness, Other (TTP over the posterior right shoulder with light palpation, no evidence for dislocation or AC separation on examination. Control Room Helper strength 5/5 and symmetric bilaterally.). negative: Calf tenderness, Pedal edema - Back Back exam: Denies: CVA tenderness (R), CVA tenderness (L) - Neurological Neurological exam: Alert, Normal gait, Oriented X3 - Psychiatric Psychiatric exam: Normal affect, Normal mood - Skin Skin exam: Normal color. negative: Abrasion Type of lesion: negative: abrasion Course Vital Signs 04/22/18 17:09 Temperature 98.6 F Pulse Rate 76 Respiratory 20 Rate Blood Pressure 145/106 Pulse Ox 99 - Reevaluation(s) Reevaluation #1: 04/22/18 18:22 CT Head: No acute process CT Cervical Spine: No acute process Right Shoulder: Negative for acute fracture Patient was updated on all results, reports improvment in her pain symptoms and appears stable for discharge at this time. Disposition Disposition: Discharge Clinical Impression: Multiple contusions Fall from standing Qualifiers: Encounter type: initial encounter Qualified Code(s): W19.XXXA - Unspecified fall, initial encounter Disposition: Home, Self-Care Condition: (2) Stable Instructions: Contusion in Adults (ED) Additional Instructions: Return to ED if your symptoms worsen or if you have any concerns. Continue Tramadol as directed. Follow-up with your family doctor in 3-5 days as directed. Forms: Patient Portal Access Time of Disposition: 18:23 Quality - Quality Measures Quality Measures: N/A - Blood Pressure Screening Does Patient Have Any of the Following: Active Dx of HTN Blood Pressure Classification: Hypertensive Reading Systolic Measurement: 145 Diastolic Measurement: 106 Screening for High Blood Pressure: Patient Exclusion, Hx of HTN [G9744]
--- NOTE | 2018-04-25 15:29 | CT SCAN REPORT ---
EXAM: CT SCAN CERVICAL SPINE WO CONTRAST HISTORY: INJURY. TECHNIQUE: Sequential axial images were obtained through the cervical spine without intravenous contrast administration. Sagittal and coronal reformatted images were performed. FINDINGS: No evidence of fracture, subluxation, or perched facet. The lateral masses are well-aligned. The prevertebral soft tissues are normal. Visualized lung apices are clear. IMPRESSION: NEGATIVE CT EXAMINATION OF THE CERVICAL SPINE. JOB NUMBER: [id number] MTDD
--- NOTE | 2018-04-25 15:31 | CT SCAN REPORT ---
EXAM: CT SCAN HEAD WO CONTRAST HISTORY: FALL. TECHNIQUE: Sequential axial images were obtained from the foramen magnum to the vertex without contrast administration. FINDINGS: The brain volume is normal. No large territorial infarct, hemorrhage , mass effect, or midline shift. No extra-axial fluid collection. Orbits, paranasal sinuses, and mastoid air cells are normal. IMPRESSION: NO ACUTE INTRACRANIAL ABNORMALITY IS APPRECIATED. JOB NUMBER: [id number] MTDD
--- NOTE | 2018-04-25 15:32 | RADIOLOGY REPORT ---
EXAM: SHOULDER, RIGHT HISTORY: PAIN. TECHNIQUE: Three views of the right shoulder were performed. FINDINGS: No evidence of fracture or dislocation. No lytic or blastic lesion. IMPRESSION: NEGATIVE RIGHT SHOULDER EXAMINATION. JOB NUMBER: [id number] MTDD
== END 2018-04-22 18:34 | disposition home or self-care (01) ==
LOC: ER 17:07
DX: S00.93XA Contusion of unspecified part of head, initial encounter (principal); S40.011A Contusion of right shoulder, initial encounter; M54.9 Dorsalgia, unspecified; W01.198A Fall on same level from slipping, tripping and stumbling with subsequent striking against other object, initial encounter; Y92.009 Unspecified place in unspecified non-institutional (private) residence as the place of occurrence of the external cause; Y93.K9 Activity, other involving animal care; Z87.891 Personal history of nicotine dependence
CPT/HCPCS: 70450; 72125; 99283; 99284

== ENCOUNTER 2019-05-24 12:50 | Emergency (ER) | payer BC, MEDICAID ==
[2019-05-24] MEDS ORDERED: ACETAMINOPHEN 500 MG TABLET PO ONE (14:09)
[2019-05-24] MEDS ORDERED: PROCHLORPERAZINE MALEATE 10 MG TABLET PO ONE (14:09)
[2019-05-24] MEDS ORDERED: DIPHENHYDRAMINE HCL 25 MG CAPSULE PO ONE (14:09)
--- NOTE | 2019-05-24 14:10 | Emergency Department Record ---
History of Present Illness - General Chief Complaint: Headache Migraine Stated Complaint: MIGRAINE Time Seen by Provider: 05/24/19 14:07 Source: Patient Mode of Arrival: Ambulatory Limitations: No limitations - History of Present Illness Initial Comments: Pt presents to the ED from home with complaint of 4 day hx of "Migraine". Pt has a "Lifetime history" of migraine and has them frequently. Pt relates frontal JUNIOR without visual changes or photophobia. She is nauseated but no vomiting. No weakness. Typical of prior migraines which were diagnosed by [facility]. She has Maxalt at home but has not used. She has taken no meds for this 4 day JUNIOR. Not the worst JUNIOR of her life. Onset/Timin -: Days(s) Onset Description: Gradual Location: Diffuse Severity: Moderate Severity scale (1-10): 9 Quality: Aching, Similar to previous headaches Consistency: Constant Improves With: Nothing Worsens With: Movement of head/neck, Sitting/standing Associated Symptoms: Nausea Treatments Prior to Arrival: None - Related Data Home Medications Medication Instructions Recorded Confirmed Last Taken Doxepin HCl [Silenor] 6 mg PO DAILY 05/24/19 05/24/19 Unknown Estradiol 1 mg PO DAILY 05/24/19 05/24/19 Unknown Hyoscyamine Sulfate [Hyoscyamine 0.375 mg PO ASDIR 05/24/19 05/24/19 Unknown Sulfate ER] Ondansetron [Zofran Odt] 4 mg PO Q8H PRN 05/24/19 05/24/19 Unknown Previous Rx's Medication Instructions Recorded Promethazine HCl [Phenergan] 12.5 mg PO BID #7 tablet 09/16/17 Ondansetron HCl [Zofran] 4 mg PO Q6HR PRN 6 Days #8 tablet 05/24/19 Rizatriptan Benzoate [Maxalt] 10 mg PO DAILY 6 Days #6 tablet 05/24/19 Allergies Allergy/AdvReac Type Severity Reaction Status Date / Time hydromorphone [HYDROMORPHONE] Allergy Unknown DIFFICULTY Verified 09/21/17 07:58 BREATHING Penicillins [PENICILLINS] Allergy Unknown RASH Verified 09/21/17 07:58 codeine [CODEINE] AdvReac Unknown NAUSEA AND Verified 09/21/17 07:58 VOMITING NSAIDS (Non-Steroidal AdvReac VOMITING Verified 09/21/17 07:58 Anti-Inflamma Travel Screening - Travel/Exposure Within Last 30 Days Have you traveled within the last 30 days?: No Review of Systems Constitutional: Denies: Chills, Fever, Weakness Eyes: Denies: Eye discharge, Eye pain, Photophobia, Vision change ENT: Denies: Congestion, Dental pain Respiratory: Denies: Cough Cardiovascular: Denies: Chest pain, Palpitations, Syncope Endocrine: Denies: Fatigue Gastrointestinal: Reports: Nausea. Denies: Abdominal pain, Diarrhea, Vomiting Musculoskeletal: Denies: Arthralgia, Back pain Skin: Denies: Bruising, Rash Neurological: Reports: As per HPI, Headache. Denies: Tingling, Tremors, Weakness Psychiatric: Denies: Anxiety, Suicidal thoughts Hematological/Lymphatic: Denies: Anemia Past Medical History - SOCIAL HISTORY Smoking Status: Former smoker Alcohol Use: None Drug Use: None - RESPIRATORY Hx Respiratory Disorders: Yes Hx Asthma: Yes (controlled with inhalers) - CARDIOVASCULAR Hx Cardio Disorders: No Comment:: troubles with knee - NEURO Hx Neuro Disorders: Yes Hx Dizziness: Yes (once a month vertigo down for 3-5 days) Hx Headaches: Yes Hx of Migraines: No (2-3x per week) - GI Hx GI Disorders: Yes Hx Reflux: Yes (controlled with meds) Hx Wt Loss/Wt Gain: (denies) - Hx Genitourinary Disorders: Yes Hx Bladder Problem: Yes (small bladder frequent urination) Hx Kidney Stones: Yes Comment:: s/p hyst - ENDOCRINE Hx Endocrine Disorders: No Hx Diabetes: Yes (gestational diabetes) Hx Thyroid Disease: No - MUSCULOSKELETAL Hx Musculoskeletal Disorders: Yes Hx Arthritis: Yes - PSYCH Hx Psych Problems: Yes Hx Depression: Yes - HEMATOLOGY/ONCOLOGY Hx Hematology/Oncology Disorders: No Family Medical History Any Significant Family History?: Yes Hx Diabetes: Father, Mother Hx Heart Disease: Father, Mother Hx HTN: Father Hx Kidney Disease: Father, Mother Hx Resp Disorders: Father, Mother Physical Exam - General General Appearance: Alert, Oriented x3, Cooperative, No acute distress - Head Head exam: Atraumatic, Normal inspection - Eye Eye exam: Normal appearance, PERRL, EOMI. negative: Nystagmus - ENT ENT exam: Normal exam, Mucous membranes moist, Normal external ear exam, Normal orophraynx, TM's normal bilaterally - Neck Neck exam: Normal inspection, Full ROM. negative: Lymphadenopathy, Tenderness - Respiratory Respiratory exam: Normal lung sounds bilaterally. negative: Respiratory distress, Rhonchi, Wheezes - Cardiovascular Cardiovascular Exam: Regular rate, Normal rhythm, Normal heart sounds. negative: Tachycardia Peripheral Pulses: 2+: Radial (R), Radial (L) - GI/Abdominal GI/Abdominal exam: Soft, Normal bowel sounds. negative: Tenderness - Extremities Extremities exam: Normal inspection, Full ROM, Normal capillary refill. negative: Tenderness - Back Back exam: Reports: Normal inspection, Full ROM. Denies: Muscle spasm, Rash noted, Tenderness - Neurological Neurological exam: Alert, CN II-XII intact, Normal gait, Oriented X3, Reflexes normal - Psychiatric Psychiatric exam: Anxious, Normal affect, Normal mood - Skin Skin exam: Normal color. negative: Rash Course Vital Signs 05/24/19 13:53 Temperature 98.9 F Pulse Rate 85 Respiratory 18 Rate Blood Pressure 150/104 Pulse Ox 98 - Reevaluation(s) Reevaluation #1: 05/24/19 14:19 Has taken no meds at home prior to coming to the ED with her daughter who has the same complaint of Migraine and is a patient in the room. Will try po meds to see if relief. Pt agrees. Reevaluation #2: 05/24/19 15:38 po meds with little relief. Plan is home with meds as outlined and follow with PMD. Disposition Disposition: Discharge Clinical Impression: Migraine Disposition: Home, Self-Care Condition: (2) Stable Instructions: Migraine Headache (ED) Additional Instructions: See your family doctor in 1-2 days return to the ED as needed. Prescriptions: Ondansetron HCl [Zofran] 4 mg PO Q6HR PRN 6 Days #8 tablet PRN Reason: Nausea Rizatriptan Benzoate [Maxalt] 10 mg PO DAILY 6 Days #6 tablet Forms: Patient Portal Access Time of Disposition: 15:41 Quality - Quality Measures Quality Measures: Headache (All Ages) - Headache: Neuroimaging Quality Measure: Measure #419: Overuse of Neuroimaging ICD10 Codes Entered: Yes Neurological Exam: Patient had a normal neurological exam. [G9535] Headache: Use of Neuroimaging: < CTA, CT, MRA or MRI was NOT ordered > [G9534] - Blood Pressure Screening Does Patient Have Any of the Following: No Blood Pressure Classification: Hypertensive Reading Systolic Measurement: 150 Diastolic Measurement: 104 Screening for High Blood Pressure: < Pre-Hypertensive BP, F/U Documented > [G8950] Pre-Hypertensive Follow-up Interventions: Follow-up with rescreen every year.
== END 2019-05-24 16:00 | disposition home or self-care (01) ==
LOC: ER 12:50
DX: G43.909 Migraine, unspecified, not intractable, without status migrainosus (principal); R11.0 Nausea; Z87.891 Personal history of nicotine dependence
CPT/HCPCS: 99283